=== PATIENT | female | born 1990 | race Caucasian/White ===

== ENCOUNTER 2020-10-16 06:02 | Day surgery (SDC) | payer SELFPAY ==
--- NOTE | 2020-10-15 10:21 | EKG12_ITS ---
Test Reason : PRE SURGERY Blood Pressure : / mmHG Vent. Rate : 074 BPM Atrial Rate : 074 BPM P-R Int : 148 ms QRS Dur : 086 ms QT Int : 378 ms P-R-T Axes : 060 091 059 degrees QTc Int : 419 ms Normal sinus rhythm with sinus arrhythmia Normal ECG Confirmed by KELSI MORA, TERRANCE ([id number]), newspaper editor managing AFSHIN ESPINOZA ([id number]) on 10/16/2020 1:53:07 PM Referred By: Aashish Arroyo Confirmed By:TERRANCE DOLAN MD
--- NOTE | 2020-10-15 10:23 | RAD_ITS ---
STUDY: X-RAY CHEST REASON FOR EXAM: Female, 30 years old. Pt states pre-op CXR for surgery tomorrow on left foot TECHNIQUE: PA and lateral views of the chest. COMPARISON: None. FINDINGS: The lungs are clear and expanded. There is no demonstrated pleural abnormality. Normal size heart. Normal mediastinum and jerrod. Normal visualized pulmonary arteries. Normal visualized aortic arch and descending thoracic aorta. Normal visualized thoracic spine. Normal visualized ribs, clavicles, and shoulders. There is no demonstrated abnormality of the visualized soft tissue structures of the upper abdomen. RAD/Chest PA and Lateral IMPRESSION: Normal x-ray examination of the chest. Electronically Signed: Roel oCnley MD at 12:51 EST , Service support ,
[2020-10-15 11:45] LABS: Absolute Lymphocyte Count 2.32 X10^3/uL (0.83-4.51); Basophil# 0.06 X10^3/uL; Basophil% 0.7 % (0-1); Eosinophil# 0.38 X10^3/uL; Eosinophils% 4.1 % (0-5); Hematocrit 42.6 % (37-47); Hemoglobin 14.4 g/dL (12.0-15.0); Lymphocyte # 2.32 X10^3/ul (4.0); Lymphocyte % 25.3 % (19-41); Mean Corp Hgb Conc 33.8 g/dL (32-36); Mean Corpuscular Hgb 31.1 pg (27.0-32.0); Mean Platelet Vol. 10.2 fl (6.2-12.0); Monocyte# 0.41 X10^3/uL; Monocyte% 4.5 % (0-10); NRBC Flagged by Analyzer 0 % (0-5); Neutrophil # 5.97 X10^3/uL (2.7-7.7); Neutrophil % 65.1 % (47-70); Platelet Count 385 K/mm3 (150-450); RBC Distribution Width CV 13.4 % (11.6-14.6); RBC Distribution Width SD 45.2 fl (35.1-43.9); Red Blood Count 4.63 M/mm3 (4.2-5.4); White Blood Count 9.2 K/mm3 (4.4-11.0)
[2020-10-15 11:56] LABS: International Normalized Ratio 1.1; Prothrombin Time (Protime)PT. 13.4 SECONDS (11.7-14.9)
[2020-10-15 11:58] LABS: Partial Thromboplast Time 26.4 Seconds (24.1-36.2)
[2020-10-15 11:59] LABS: Anion Gap 5 (5-15); BUN 9 mg/dL (7-18); Calcium,Total 8.8 mg/dL (8.5-10.1); Chloride 107 mmol/L (98-107); Creatinine, Serum 0.82 mg/dL (0.55-1.02); EST Glomerular Filtration Rate 86 mL/min (>60); Est Glom Filt Rate - Afr Amer 104 mL/min (>60); Estimated Creatinine Clearance 74.32 ml/min; Glucose 82 mg/dL (74-106); Potassium 3.8 mmol/L (3.5-5.1); Sodium Level 138 mmol/L (136-145)
[2020-10-16] VITALS (7 sets, daily range): BP systolic 98–123; BP diastolic 56–66; PULSE 62–82; RESP 16–18; TEMP 36.3–37; O2SAT 97–100; BMI 27.5
[2020-10-16 06:24] LABS: Internal QC Validated? YES +Cl - CLEAR BKGD; Pregnancy, Urine Negative Negative
[2020-10-16] MEDS: Lactated Ringers 1,000 ML 100 ML IV ×2 (06:40→08:45)
[2020-10-16] MEDS: Cefazolin 2 GM in 0.9% Normal Saline 100 ML IV (07:23)
--- NOTE | 2020-10-16 09:29 | DCINST_ITS ---
Discharge Diet: Light diet - advance as tolerated Discharge Activity: May Not Drive, May Not Shower, Use Walker, Use Crutches Weight Bearing Status: No weight bearing Keep extremity elevated above heart level: Left Leg Additional Activity Instructions:: 1. Keep dressing to left leg clean, dry, intact. Do not remove dressing. Do not get dressing wet. Protect dressing when bathing. I recommend sponge bath at this time. 2. Ice around left knee 30 minutes every hour as needed for pain. 3. Elevate left foot above level of heart as often as possible until further instructed. Place pillow underneath left calf. Do not place pressure on back of left heel near Achilles tendon. 4. No walking/standing/placing any pressure on left foot. Use crutches/walker/knee scooter for assistance. 5. Begin taking Percocet (oxycodone/acetaminophen) for pain beginning today, October 16, 2020. You may supplement with extra strength Tylenol (acetaminophen) Percocet does contain acetaminophen in it. Do not take more than 3000 mg of acetaminophen in a 24-hour period. 6. Begin taking doxycycline (antibiotic) tomorrow, October 17, 2020 twice a day as instructed on bottle. 7. Begin taking aspirin 81 mg tomorrow, October 17, 2020 twice a day. 8. Follow up with Dr. Fuad Arroyo in one week in office as previously scheduled. Call your doctor if your incision/area has: Sudden Increased Bleeding, Increased Pain/ Swelling Call your doctor if you observe: Fever of 101 or Higher, Coldness, Increased Pain, Inability to have a bowel movement, Shortness of breath, Chest pain, Increased palpitations (irregular heartbeat), Calf discomfort, Uncontrolled pain Cleanse incision/area with: Keep Dressing Clean & Dry Allergies/Adverse Reactions: Allergies No Known Allergies Allergy (Verified 10/16/20 06:26) Medications to take at Discharge Albuterol Inhaler [Ventolin Hfa (SP)] 1 - 2 puff INHALATION Q4H PRN PRN 10/14/20 Etonogestrel/Ethinyl Estradiol [Eluryng Vaginal Ring] 1 ea VG DAILY 10/14/20 Fluticasone 0.05% [Flonase Nasal Tatum] 1 spray NASAL DAILY PRN 10/14/20 Primary Care Physician: Leandra Bentley NP, [employer] [Primary Care Provider] - Test Results: Test results from this visit will be discussed in further detail at your follow- up appointment, if applicable. Please Follow Up With: Aashish Arroyo DPM When: in one week as previously scheduled. Proposed Discharge Date: 10/16/20
--- NOTE | 2020-10-16 09:34 | OP.PCM_ITS ---
Problem List (1) Strain of left Achilles tendon Status: Acute Qualifiers: Encounter type: initial encounter Qualified Code(s): S86.012A - Strain of left Achilles tendon, initial encounter Report of Operation Date of Procedure: 10/16/20 Pre-Operative Diagnosis: Strain of left Achilles tendon, left Achilles tendon rupture Post-Operative Diagnosis: Same as preoperative Surgery/Procedure Performed:: Left Achilles tendon repair Description of Surgical Findings:: Consistent with diagnosis. Shafer's test elicited in a dependent and independent fashion preoperatively elicited no plantar flexion of the left lower extremity. This test performed postoperatively elicited plantar flexion comparable to the contralateral side. 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 Arthrex percutaneous Achilles repair system with associated FiberWire and fiber tape. 2. Arthrex bone anchor x2. 3. Size 2-0 Vicryl. 4. Size 3-0 Vicryl. 5. Size 3-0 nylon. Injectables: None Complications: None Condition: Stable Indications: Patient is a 30-year-old female with no significant past medical history who was playing volleyball on 10/10/2020. As she was playing, she felt a pop on the back of his left leg. Patient thought that she was hit in the back of the leg with a racquet. Patient felt immediate pain in the area, and was unable to bear weight. Patient was initially seen by her PCP, who ordered x-rays. X-rays revealed no osseous pathology, but evaluation by the physician there revealed a left Achilles tendon rupture. Patient initially saw me in my office on Tuesday, October 13, 2020 for initial evaluation. After clinical examination was performed, this revealed no plantar flexion of the left foot during the Shafer's test in a dependent and independent fashion. This test performed on the contralateral limb revealed full plantarflexion on the right side. Furthermore, there is evidence of gapping noted in the area of the left Achilles tendon and she had an increased in the dorsiflexory component of the left foot when compared to the right foot. I discussed with the patient that I do believe that she has an Achilles tendon rupture. I discussed conservative and surgical intervention for this, with risks and benefits to both treatment options. I discussed with the patient that there is a higher chance of rerupture along with increased muscle weakness of the affected limb with nonoperative intervention. All the patient's questions were answered to her satisfaction and all of his concerns were addressed. No guarantees were made as to the outcome of the procedure. Patient understood all aspects of the procedure. I discussed with the patient that I believe that surgical intervention would be in her best interest. Patient was agreeable to this. I discussed with the patient that I would need a MRI for preoperative planning. An MRI was then performed, revealing a complete tear of the Achilles tendon with a 2cm gap. I went over the MRI findings with her, revealing a near complete Achilles tendon rupture. Surgery was then planned for today. Operative report: Before the patient was brought to the operating room, the risks, benefits, possible outcomes, possible complications of the procedure discussed with the patient once again. The risks include but not limited to delayed or nonhealing wounds, delayed or nonhealing tendon, DVT, infection, decreased function of [place] b, muscle weakness, continued pain, loss of limb, loss of life. All the patient's questions were answered to her satisfaction and all of her concerns were addressed. No guarantees were made as to the outcome of the procedure. Patient understood all aspects of the procedure, and consent was then signed by the patient. Before the patient was brought to the operating room, the anesthesiologist administered a popliteal block to the left lower extremity. Patient was then brought to the operating room. Ancef 2 grams was administered pre-operatively. At that time, general anesthesia was obtained and anesthesia took control of the airway. Patient was then placed in a prone position on the bed, with adequate padding placed in all pressure points. Next, the left foot, ankle, leg were then scrubbed, prepped, draped in the usual sterile manner. Attention was then directed to the posterior aspect of the left ankle in the area of the Achilles tendon. At this time, markings were made on the skin of the posterior tuber of the calcaneus, insertion point of the Achilles tendon into the calcaneus, and level of the Achilles tendon tear. Next, the left foot, ankle, leg were then elevated and exsanguinated via Esmarch and inflation the pneumatic thigh tourniquet was performed to 250 mmHg. Attention was then directed back to the posterior aspect of the left Achilles. Next, #15 blade was to perform a linear longitudinal incision starting at the proximal aspect of the Achilles tendon tear extending distally to the distal aspect of the Achilles tendon tear. This incision was approximately 3 cm in length. This incision was deepened utilizing sharp and blunt dissection. Care was taken to retract all vital neural and vascular structures. All bleeders were cauterized and ligated as necessary. Next, a linear incision was made in line with the paratenon. The paratenon was then reflected medially and laterally, thus exposing the Achilles tendon at the operative site. Next, the surgical site was irrigated with copious amounts of normal sterile saline. The proximal portion of the Achilles tendon was then clamped via an Allis clamp. At this time, the Arthrex PARS jig was placed into the surgical site aimed superiorly along the proximal aspect of the Achilles tendon. The sutures were passed from medial to lateral in standard fashion. Once all sutures were passed, the Arthrex jig was pulled inferiorly through the surgical site to allow the sutures to pass through the proximal portion of the Achilles tendon out the proximal end.. Next, a Tone needle was used to take the ends of the medial and lateral sutures to pass them through the distal portion of the proximal tear to centralize the sutures in the tendon tear. Attention was then directed to the lateral aspect of the insertion point of the Achilles tendon. Next, #15 blade was used to perform an incision just lateral to the lateral portion of the Achilles tendon insertion in the midportion of the calcaneal tuber. This incision was approximate 0.5 cm in length. This incision was deepened utilizing sharp and blunt dissection down to the level of the calcaneus. Next, the Arthrex suture passer corrigan was placed into this incision and through the insertion point the Achilles tendon and was passed through the distal portion of the Achilles tendon tear. Next, the wire to pass the sutures was placed through the suture passer and the sutures on the lateral aspect of the incision were then passed from the proximal portion of the Achilles tendon rupture through the distal portion out the incision on the distal lateral aspect of the insertion point the Achilles tendon. Next, attention was then directed to the medial aspect of the insertion point of the Achilles tendon. A #15 blade was used to perform an incision just medial to the medial portion of the Achilles tendon insertion in the midportion of the calcaneal tuber. This incision was approximate 0.5 cm in length. This incision was deepened utilizing sharp and blunt dissection down to the level of the calcaneus. Next, the Arthrex suture passer corrigan was placed into this incision and through the insertion point the Achilles tendon and was passed through the distal portion of the Achilles tendon tear. Next, the wire to pass the sutures was placed through the suture passer and the sutures on the medial aspect of the incision were then passed from the proximal portion of the Achilles tendon rupture through the distal portion out the incision on the distal medial aspect of the insertion point the Achilles tendon. At this time, attention was then directed back to the distal lateral surgical site. Drilling and tapping was performed for the bone anchor in standard fashion. The sutures were then placed into the bone anchor, and the bone anchor was inserted into the lateral portion of the calcaneus with the foot approximately in 15 degrees of plantar flexion. The bone anchor was placed in a slightly plantarflexed position. Care was taken to make sure that the foot was held in this plantarflexed position as the bone anchor was placed. Adequate tensioning was placed on the sutures while the anchor was being placed. Once the anchor was placed, any excess sutures were removed from the surgical site. Next, attention was then directed back to the distal medial surgical site. Drilling and tapping was performed for the bone anchor in standard fashion. The sutures were then placed into the bone anchor, and the bone anchor was inserted into the medial portion of the calcaneus with the foot approximately in 15 degrees of plantar flexion. The bone anchor was placed in a slightly plantarflexed position. Care was taken to make sure that the foot was held in this plantarflexed position as the bone anchor was placed. Adequate tensioning was placed on the sutures while the anchor was being placed. Once the anchor was placed, any excess sutures were removed from the surgical site. The Shafer's test was then performed once again, and now plantar flexion was performed of the foot that was comparable to the contralateral extremity. Each surgical site was then irrigated with copious amounts of normal sterile sa line. The tendon ends from the proximal and distal portions of the Achilles tendon tear were then reapproximated and coapted utilizing size size 0 Vicryl in an over and over stitch fashion. The paratenon was then reapproximated coapted utilizing 2-0 Vicryl in a running stitch fashion. The subcutaneous tissue was reapproximated and coapted utilizing size 3-0 Vicryl. The skin was reapproximated and coapted utilizing size 3-0 nylon in a simple interrupted and horizontal mattress fashion. The subcutaneous tissues of the bone anchor sites were reapproximated and coapted utilizing size 3-0 Vicryl. The skin of the bone anchor sites were reapproximated and coapted using size 3-0 nylon in a simple interrupted and horizontal mattress fashion. The pneumatic thigh tourniquet was then released and a prompt hyperemic response noted the entirety of the left lower extremity. Each surgical site was then dressed with Betadine soaked gauze, and a dry sterile dressing consisting of 4 x 4 gauze, ABD pads, wrapped with Kerlix. The left foot and ankle were then wrapped with an Jose bandage. Next, a stockinette was placed over the left lower extremity. Cast padding was wrapped frpm the metatarsal heads extending proximally to the level just distal to the tibial tuberosity. A posterior splint was fashioned to the left lower extremity and was adhered to the left lower extremity utilizing Jose bandages. Care was taken make sure that the foot and ankle held in a plantarflexed position as the posterior splint dried. Neurovascular status was assessed at the end of the application and deemed intact to left lower extremity. The patient tolerated the anesthesia and the procedure well and was transported to the PACU with vital signs stable and neurovascular status intact the left lower extremity. After period of postoperative monitoring, patient will be discharged home with written and oral instructions for wound care and follow-up. Grafts/Implants Used: Arthrex PARS, Arthrex bone anchors - Complications None - Admit VTE Documentation VTE Present on Admission: No - Aspirin 81 mg twice daily to begin tomorrow, 10/17/20 for DVT prophylaxis VTE Mechan Device Prophylaxis: SCD's
--- NOTE | 2020-10-16 09:45 | RAD_ITS ---
STUDY: X-RAY - LEFT ANKLE REASON FOR EXAM: Female, 30 years old. S/p left achilles tendon repair with bone anchor TECHNIQUE: 3 view(s) of the ankle. COMPARISON: None. FINDINGS: Normal visualized distal tibia and fibula. Normal medial and lateral malleoli. Normal tibiotalar articulation and ankle mortise. Normal visualized talus and calcaneus. The visualized subtalar, talonavicular, calcaneocuboid and tarsal articulations are normal. Postoperative soft tissue changes secondary to Achilles tendon repair. RAD/Ankle min 3 Views IMPRESSION: Postoperative soft tissue changes secondary to Achilles tendon repair. Electronically Signed: Roel Conley MD at 13:45 EST , Service support ,
== END 2020-10-16 11:34 | disposition home or self-care (01) ==
LOC: SDC 06:05 → AC 06:05
PROVIDERS: Anesthesiology; PCP Nurse Practitioner Primary Care; Referring Provider Podiatrist Foot & Ankle Surgery; Visit Provider Podiatrist Foot & Ankle Surgery
PROC: (CPT 27650; principal; 2020-10-16 07:15)
DX: S86.012A Strain of left Achilles tendon, initial encounter (principal); Z20.828 Contact with and (suspected) exposure to other viral communicable diseases; X58.XXXA Exposure to other specified factors, initial encounter; Y93.68 Activity, volleyball (beach) (court); Y92.9 Unspecified place or not applicable; J45.909 Unspecified asthma, uncomplicated
CPT/HCPCS: 01472; 27650; 36415; 71046; 73610; 80048; 81025; 83036; 85025; 85610; 85730; 87426; 93005; C1713; C9803; J7120; J2405